=== PATIENT | female | born 1940 | race Caucasian/White ===

== ENCOUNTER 2016-08-22 00:08 | Inpatient (IN) | payer OTHER, MEDICARE ==
[2016-08-22] MEDS ORDERED: DIPH/PERTUSS(ACELL)/TETANUS VAC/PF 0.5 ML SYR (>=10YO) IM ONE (00:36)
[2016-08-22] MEDS ORDERED: FENTANYL CITRATE INJ/PF 100 MCG/2 ML AMPUL IV ONE (00:37)
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
[2016-08-22 00:50] LABS: ABSOLUTE EOSINOPHILS # (AUTO) 0.1 10^3/uL (0.0-0.6); ABSOLUTE LYMPHOCYTES (AUTO) 2.2 10^3/uL (0.5-4.7); ABSOLUTE MONOCYTES (AUTO) 0.5 10^3/uL (0.1-1.4); ABSOLUTE NEUT (AUTO) 7.5 10^3/uL (1.7-8.2); BASOPHILS % (AUTO) 0.2 % (0-2); EOSINOPHILS % (AUTO) 1.1 % (0-6); HEMATOCRIT 35.7 % (36.0-47.0); HEMOGLOBIN 12.2 g/dL (12.0-15.5); HGB HCT DIFFERENCE 0.9; LYMPHOCYTES % (AUTO) 21.3 % (13-45); MEAN CORPUSCULAR HEMOGLOBIN 32.9 pg (27.0-33.4); MEAN CORPUSCULAR HGB CONC 34.2 g/dL (32.0-36.0); MEAN CORPUSCULAR VOLUME 96 fl (80-97); MONOCYTES % (AUTO) 4.4 % (3-13); RED CELL DISTRIBUTION WIDTH 13.4 % (11.5-14.0); WHITE BLOOD COUNT 10.2 10^3/uL (4.0-10.5)
[2016-08-22 01:02] LABS: ANION GAP 14 (5-19); BLOOD UREA NITROGEN 20 mg/dL (7-20); CARBON DIOXIDE 23 mmol/L (22-30); CHLORIDE 106 mmol/L (98-107); GLUCOSE 114 mg/dL (75-110); POTASSIUM 3.8 mmol/L (3.6-5.0); SODIUM 142.8 mmol/L (137-145)
[2016-08-22] MEDS ORDERED: CEFAZOLIN 1 GM/D5W RTU 1 GM/50 ML RTUPB IV ONE (01:30)
[2016-08-22 06:12] LABS: PROTHROMBIN TIME 12.6 SEC (11.4-15.4)
[2016-08-22 06:13] LABS: PARTIAL THROMBOPLASTIN TIME 20.2 SEC (23.5-35.8)
[2016-08-22] MEDS: KETOROLAC TROMETHAMINE 10 MG TABLET PO PRN ×3 (07:05→19:40)
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
[2016-08-22] MEDS: POTASSI CL 20 MEQ/D5LR 1L 1,000 ML IV PRN ×2 (08:25→16:22)
[2016-08-22] MEDS: CEFAZOLIN 1 GM/D5W RTU 50 ML IV SCH ×3 (08:38→17:52)
[2016-08-22] MEDS: CETIRIZINE 10 MG TABLET PO SCH (13:11)
[2016-08-22] MEDS: HYDROMORPHONE HCL INJ/PF 2 MG/ML AMPULE IV PRN ×2 (13:12→19:40)
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
[2016-08-23] MEDS: POTASSI CL 20 MEQ/D5LR 1L 1,000 ML IV PRN ×2 (00:23→11:37)
[2016-08-23] MEDS: CEFAZOLIN 1 GM/D5W RTU 50 ML IV SCH ×5 (00:25→23:40)
[2016-08-23] MEDS: KETOROLAC TROMETHAMINE 10 MG TABLET PO PRN ×4 (03:18→21:47)
[2016-08-23] MEDS: HYDROMORPHONE HCL INJ/PF 2 MG/ML AMPULE IV PRN ×4 (03:18→21:46)
[2016-08-23 04:42] LABS: HEMATOCRIT 32.9 % (36.0-47.0); HEMOGLOBIN 11.1 g/dL (12.0-15.5); HGB HCT DIFFERENCE 0.4; MEAN CORPUSCULAR HEMOGLOBIN 32.6 pg (27.0-33.4); MEAN CORPUSCULAR HGB CONC 33.8 g/dL (32.0-36.0); MEAN CORPUSCULAR VOLUME 97 fl (80-97); RED CELL DISTRIBUTION WIDTH 13.7 % (11.5-14.0); WHITE BLOOD COUNT 6.2 10^3/uL (4.0-10.5)
[2016-08-23 04:57] LABS: ANION GAP 11 (5-19); BLOOD UREA NITROGEN 14 mg/dL (7-20); CALCIUM 8.6 mg/dL (8.4-10.2); CARBON DIOXIDE 24 mmol/L (22-30); CHLORIDE 104 mmol/L (98-107); CREATININE RESULT 0.64 mg/dL (0.52-1.25); GLUCOSE 138 mg/dL (75-110)
[2016-08-23] MEDS: CETIRIZINE 10 MG TABLET PO SCH (12:10)
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
[2016-08-23 15:08] LABS: ABSOLUTE EOSINOPHILS # (AUTO) 0.1 10^3/uL (0.0-0.6); ABSOLUTE LYMPHOCYTES (AUTO) 0.7 10^3/uL (0.5-4.7); ABSOLUTE MONOCYTES (AUTO) 0.5 10^3/uL (0.1-1.4); BASOPHILS % (AUTO) 0.2 % (0-2); EOSINOPHILS % (AUTO) 1.4 % (0-6); HEMATOCRIT 35.7 % (36.0-47.0); HEMOGLOBIN 12.2 g/dL (12.0-15.5); HGB HCT DIFFERENCE 0.9; LYMPHOCYTES % (AUTO) 8.6 % (13-45); MEAN CORPUSCULAR HEMOGLOBIN 33.1 pg (27.0-33.4); MEAN CORPUSCULAR HGB CONC 34.1 g/dL (32.0-36.0); MEAN CORPUSCULAR VOLUME 97 fl (80-97); MONOCYTES % (AUTO) 6.3 % (3-13); RED BLOOD COUNT 3.68 10^6/uL (3.72-5.28); RED CELL DISTRIBUTION WIDTH 13.8 % (11.5-14.0); SEGMENTED NEUTROPHILS % (AUTO) 83.5 % (42-78); WHITE BLOOD COUNT 8.3 10^3/uL (4.0-10.5)
[2016-08-23 15:19] LABS: ANION GAP 7 (5-19); BLOOD UREA NITROGEN 11 mg/dL (7-20); CALCIUM 8.9 mg/dL (8.4-10.2); CARBON DIOXIDE 28 mmol/L (22-30); CHLORIDE 103 mmol/L (98-107); CREATININE RESULT 0.67 mg/dL (0.52-1.25); GLUCOSE 122 mg/dL (75-110); POTASSIUM 4.7 mmol/L (3.6-5.0); SODIUM 137.6 mmol/L (137-145)
[2016-08-24] MEDS: CEFAZOLIN 1 GM/D5W RTU 50 ML IV SCH (05:18)
[2016-08-24] MEDS: DOCUSATE SODIUM 100 MG CAPSULE PO SCH (09:03)
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
[2016-08-24] MEDS: CETIRIZINE 10 MG TABLET PO SCH (12:31)
[2016-08-24] MEDS: KETOROLAC TROMETHAMINE 10 MG TABLET PO PRN ×2 (12:32→21:08)
[2016-08-24] MEDS: HYDROMORPHONE HCL INJ/PF 2 MG/ML AMPULE IV PRN ×2 (14:50→22:47)
[2016-08-25] MEDS: KETOROLAC TROMETHAMINE 10 MG TABLET PO PRN ×4 (03:37→21:25)
--- NOTE | 2016-08-25 08:33 | PROGRESS NOTE E ---
Progress Note NAME: JENNY TINOCO : 1940 AGE: 76Y DATE: 08/25/2016 ROOM: 402 SUBJECTIVE: She is still complaining of pains in the sternal rib and right clavicle fracture sites requiring parenteral pain medications. Today she felt a little better and her white count remained normal at 8.3 and also afebrile. PLAN: Continue weaning her from parenteral pain medications and discharge when pains are controlled by p.o. pain meds. She is going to need physical therapy starting today. DICTATING PHYSICIAN: LILIANA BAZZI M.D. [id number] PHY#: [id number] ID: [id number] JOB#: [id number] ACCT: [id number] cc: >
[2016-08-25] MEDS ORDERED: HYDROMORPHONE HCL INJ/PF 2 MG/ML AMPULE IV PRN (08:59)
[2016-08-25] MEDS: DOCUSATE SODIUM 100 MG CAPSULE PO SCH (09:32)
[2016-08-25] MEDS: CETIRIZINE 10 MG TABLET PO SCH ×2 (13:15→18:01)
[2016-08-25] MEDS ORDERED: ZOLPIDEM TARTRATE 5 MG TABLET PO ONE (22:30)
[2016-08-26] MEDS: KETOROLAC TROMETHAMINE 10 MG TABLET PO PRN ×3 (03:34→15:39)
[2016-08-26] MEDS: DOCUSATE SODIUM 100 MG CAPSULE PO SCH (09:34)
--- NOTE | 2016-08-26 15:59 | XCELERA REPORT ---
[address] [address] Lower Extremity Venous Evaluation Name: JENNY TINOCO Age: 76 yrs Gender: Female : 1940 Patient Status: Inpatient Patient Location: 4N\S\[facility]\S\A Study Date: 08/26/2016 02:38 PM Procedure: Color flow and duplex imaging bilaterally of the veins of the lower extremities as well as the Common Femoral veins. Reason For Study: R/O OUT BLOOD CLOT - SWELLING TO LEGS Ordering Physician: LILIANA BAZZI Performed By: Ab Alba Right Sided Venous Evaluation Normal vessel filling wall to wall, compression and augmentation as well as Colour flow down to the infrageniculate veins. Left Sided Venous Evaluation Normal vessel filling wall to wall, compression and augmentation as well as Colour flow down to the infrageniculate veins. Interpretation Summary No duplex evidence of DVT or obstruction in the bilateral lower extremities. : LILIANA BAZZI > Favian Haq
[2016-08-26] MEDS: CETIRIZINE 10 MG TABLET PO SCH (18:17)
[2016-08-27] MEDS: KETOROLAC TROMETHAMINE 10 MG TABLET PO PRN (03:29)
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
[2016-08-27] MEDS ORDERED: OXYCODONE-ACETAMINOPHEN 5-325 MG TABLET PO ONE (12:00)
[2016-08-27 13:05] VITALS: BP 133/60
[2016-08-27] MEDS: DOCUSATE SODIUM 100 MG CAPSULE PO SCH (14:54)
== END 2016-08-27 16:06 | disposition home health service (06) | DRG 184 ==
LOC: ER 00:08 → UNDOADMIN 02:52 → EH 02:52 → 4N 06:52
PROVIDERS: ADMIT Surgery; ATTEND Surgery
DX: S22.20XA Unspecified fracture of sternum, initial encounter for closed fracture (principal); S27.329A Contusion of lung, unspecified, initial encounter; S22.32XA Fracture of one rib, left side, initial encounter for closed fracture; S42.021A Displaced fracture of shaft of right clavicle, initial encounter for closed fracture; V43.62XA Car passenger injured in collision with other type car in traffic accident, initial encounter; Y93.9 Activity, unspecified; Y92.410 Unspecified street and highway as the place of occurrence of the external cause
CPT/HCPCS: 36415; 70450; 71260; 72125; 74177; 80048; 85025; 85027; 85610; 85730; 86850; 86900; 86901; 93970; 94799; 99291; G8978-GP; G8979-GP; J0690; J1170; J3480; J3490

== ENCOUNTER → 2016-09-08 | Outpatient (CLI) | payer OTHER, MEDICARE | LOC: RAD 16:49 | PROVIDERS: ATTEND Surgery | DX: J90 Pleural effusion, not elsewhere classified (principal); Z87.09 Personal history of other diseases of the respiratory system | CPT/HCPCS: 71020 ==